=== PATIENT | male | born 1965 | race Caucasian/White ===

== ENCOUNTER 2016-10-02 10:03 | Inpatient (IN) | payer BC ==
[~2016-10-02] VITALS: Ht 182.8 cm; Wt 154.7 kg
--- NOTE | ~2016-10-02 | O ---
[place], [place] OPERATIVE NOTE NAME: [facility] UNIT #: [id number] ROOM: 425 DOCTOR: BHAVIN RICH MD BIRTHDATE: [birth year] DOS: 10/10/2016 CARDIOVERSION INDICATIONS: Atrial fibrillation with rapid ventricular response, diastolic heart failure, tachymyopathy. DESCRIPTION OF PROCEDURE: The patient was brought to the operating suite in a fasting state. He was anesthetized and monitored by Anesthesia staff. When a satisfactory degree of anesthesia was obtained, a transesophageal transducer was inserted through his mouth to the level of his stomach without difficulty. Images were obtained in the standard fashion. The left atrium and its appendage were imaged in multiple planes. No thrombus was seen. Once it was clear that he did not have any clot in his left heart, the transesophageal transducer was removed. The patient was placed on his back. He was then shocked utilizing anterior posterior pads with a synchronized biphasic cardioversion device. He received a total of 2 shocks, the first was at 50 watt seconds and converted him from apparent atrial flutter to atrial fibrillation. The second was at 200 watt seconds and converted him from atrial fibrillation to sinus. He had stable vital signs throughout and tolerated the procedure well. IMPRESSION: 1. No cardiac source of emboli seen by transesophageal echocardiography. 2. Successful synchronized cardioversion. BHAVIN RICH MD CM:OPRECORD:OPERATIVE NOTE [id number] BHAVIN RICH MD 10/11/16 0120 interface
--- NOTE | ~2016-10-02 | PR ---
[place], [place] PROGRESS NOTE NAME: [facility] UNIT #: [id number] ROOM: 425 DOCTOR: BHAVIN RICH MD BIRTHDATE: [birth year] DOS: 10/07/2016 CARDIOLOGY PROGRESS REPORT SUBJECTIVE: The patient was seen at his bedside today, 10/07/2016 for followup of his newly-documented heart failure and atrial flutter. He is breathing well, but still has considerable peripheral edema. He is diuresing briskly, but is still receiving his diuretics intravenously. He was noted to have frequent episodes of tachycardia today with heart rates in the 140s frequently. PHYSICAL EXAMINATION: VITAL SIGNS: On examination, his pulse is 120 and regular, blood pressure is 98/60, he is afebrile and he weighs 159.2 kilograms with a body mass index of 47.6. NECK: Supple. He has no jugular distention. Carotids are full. I heard no bruits. LUNGS: Respirations were unlabored. His chest was clear. He had decreased breath sounds at the bases but no wheezes, rales or dullness. CARDIOVASCULAR: His heart had a regular rapid rhythm today. Heart tones were distant. He was obese with a soft abdomen. EXTREMITIES: Showed 2+ pitting edema to the mid calf. LABORATORY EVALUATION: Sodium is 137, potassium 3.9, BUN 17 and creatinine 1.01. IMPRESSION: 1. Acute congestive heart failure, most likely due to atrial fibrillation with tachycardia-induced myopathy. 2. Morbid obesity with body mass index greater than 50 on admission. 3. Obstructive sleep apnea. 4. Elevated troponin levels. PLAN: His blood pressure today is somewhat marginal and; therefore, I decreased his angiotensin receptor shorty, but I did add diltiazem to his regimen to try to improve rate control. We will continue him with intravenous diuretics, anticoagulation and guideline-directed medical therapy as much as possible. I would like to bring him as close to euvolemia as possible before I switch him to oral agents or consider a cardioversion. This is best done in the hospital where we can adjust the dosages on a daily basis and follow laboratory studies closely. I thank the hospitalist physicians for asking our advice regarding the patient's care. [place], [place] PROGRESS NOTE NAME: [facility] UNIT #: [id number] ROOM: [facility] DOCTOR: BHAVIN RICH MD BIRTHDATE: [birth year] BHAVIN RICH MD CM:PNTRANS [id number] BHAVIN RICH MD 10/08/16 0632 interface
--- NOTE | ~2016-10-02 | PR ---
[place], [place] PROGRESS NOTE [id number] UNIT #: [id number] ROOM: 425 DOCTOR: BHAVIN RICH MD BIRTHDATE: [birth year] DOS: 10/11/2016 CARDIOLOGY PROGRESS NOTE SUBJECTIVE: The patient was seen at his bedside today 10/11/2016 for followup of his atrial fibrillation with tachycardia-induced cardiomyopathy. Yesterday, he did undergo a RJ-guided cardioversion, which he tolerated well. He tells me that he does feel like he is breathing better today. He denies any chest pain or palpitations. His peripheral edema seems to be improving. This is interesting to note that his ejection fraction on admission was about 45%. With heart rate control, his ejection fraction during the RJ done yesterday looked normal. He did have a pharmacologic stress test earlier in this hospitalization, which showed normal myocardial perfusion. PHYSICAL EXAMINATION: VITAL SIGNS: Today, his pulse is 74 and regular, blood pressure is 127/64. He is afebrile. NECK: Supple. He has no jugular distention. Carotids are full without bruits. He has no neck or supraclavicular masses. LUNGS: Respirations are unlabored. CHEST: His chest is clear to auscultation and percussion. He has no presacral edema or chest wall tenderness. HEART: Has a regular rhythm. He has a fourth heart sound, but no third heart sound or murmur. The PMI is not displaced. He has no precordial heave, lift or thrill. ABDOMEN: Soft and normally active without masses, organomegaly or bruits. EXTREMITIES: Showed 1+ edema. Peripheral pulses are easily palpated bilaterally. IMPRESSION: 1. Newly documented atrial fibrillation. 2. Tachycardia-induced cardiomyopathy. 3. Morbid obesity with body mass index greater than 50. 4. Obstructive sleep apnea. 5. Elevated troponin levels on admission, most likely due to tachycardia. 6. Pharmacologic myocardial perfusion study on 10/04/2016, ejection fraction 52% and no perfusion defects, low risk study. 7. Transesophageal echocardiography-guided cardioversion on 10/10/2016 showed no cardiac source of emboli. The patient converted to sinus rhythm after two shocks (50 watt seconds and 200 watt seconds). PLAN: The patient will be going home on his current medical regimen, which includes torsemide 60 mg daily, losartan 50 mg daily, digoxin 250 mcg daily, metoprolol succinate 100 mg b.i.d., apixaban 5 mg b.i.d., atorvastatin 20 mg daily, vitamin D 4000 units daily, spironolactone 25 mg daily. We will arrange to see him back in the office in about 2 weeks. I thank the hospitalist group for asking our advice regarding his care. [place], [place] PROGRESS NOTE NAME: [facility] UNIT #: [id number] ROOM: 425 DOCTOR: BHAVIN RICH MD BIRTHDATE: [birth year] BHAVIN RICH MD CM:PNTRANS [phone] BHAVIN RICH MD 10/11/161719 interface
--- NOTE | ~2016-10-02 | WRIGHTHP ---
[place], [place] PATIENT HISTORY AND PHYSICAL EXAM NAME[facility] [id number] UNIT #: [id number] ROOM: [facility] DOCTOR: HENRY GIRARD DO BIRTHDATE: [birth year] DOS: 10/02/2016 PRIMARY CARE PHYSICIAN: Dr. Nguyen Vang in the Family Medicine Residents. The patient was seen and evaluated with the resident on 10/02/2016. Please see the resident's note for further details. ASSESSMENT: 1. Acute systolic heart failure. 2. Newly recognized atrial flutter and currently with a rapid ventricular response. 3. Mildly elevated troponin. 4. History of cardiomyopathy diagnosed in April of 2014, echocardiogram at that time measured an ejection fraction of 40%. 5. Hypertension. 6. Hyperlipidemia. 7. Obstructive sleep apnea. 8. Obesity. 9. Tobacco abuse in the form of chewing tobacco. 10. False positive cardiac stress test in April of 2014. At that time, the patient was transferred to another facility for a cardiac catheterization, which showed no significant blockages. This is according to the patient. I do not have the records to verify this. 11. History of liver biopsy in April of 2014. PLAN: Continue Cardizem drip for rate control. Heparin drip has also been started. Cardiology has been consulted and an echocardiogram has been ordered. Continue IV diuresis with Lasix. We will continue to follow the cardiac enzymes and monitor the patient in ICU overnight. HENRY GIRARD DO CM:HISPHYS:PATIENT HISTORY AND PHYSICAL EXAMINATION 1613 [id number] HENRY GIRARD DO 10/02/16 1638 interface
--- NOTE | ~2016-10-02 | PR ---
[place], [place] PROGRESS NOTE NAME: [id number] UNIT #: [id number] ROOM: 425 DOCTOR: BHAVIN RICH MD BIRTHDATE: [birth year] DOS: 10/09/2016 SUBJECTIVE: The patient was seen at his bedside today, 10/09/2016, for followup of his recently documented atrial fibrillation and heart failure. He continues to diurese well, but remains in atrial fibrillation. His heart rate is typically controlled, but occasionally he still does get pulses in the 120 range. He denies any chest pain or palpitations. He denies lightheadedness or syncope. PHYSICAL EXAMINATION: VITAL SIGNS: Today, his pulse is 66 and irregularly irregular, blood pressure is 106/56. He is afebrile. NECK: Supple. He has no jugular distention or hepatojugular reflux. Carotids are full. LUNGS: Respirations are unlabored. His chest is clear to auscultation and percussion. He has no presacral edema. HEART: Has an irregularly irregular rhythm without murmurs or gallops. The PMI was not displaced. ABDOMEN: Obese, but otherwise benign, without masses, organomegaly or bruits. EXTREMITIES: Showed 1+ edema bilaterally. LABORATORY DATA: Hemoglobin is 15.9, white count 10,500. Sodium 133, potassium 4.4, BUN 24, creatinine 1.14. Digoxin level yesterday was 0.5. The patient has remained in atrial fibrillation despite good control of his heart rate, we will therefore plan on an elective cardioversion within the next 24 hours. Since he has not been anticoagulated for a full 3 weeks yet, we will do a RJ guided cardioversion. After that, he may be discharged to home within the next 24 hours. I thank the hospitalist physicians for asking our advice regarding his care. BHAVIN RICH MD CM:PNTRANS [phone] BHAVIN RICH MD 10/09/162300 interface
--- NOTE | ~2016-10-02 | PR ---
[place], [place] PROGRESS NOTE NAME: [facility] UNIT #: [id number] ROOM: 425 DOCTOR: BHAVIN RICH MD BIRTHDATE: [birth year] DOS: 10/08/2016 CARDIOLOGY PROGRESS NOTE SUBJECTIVE: The patient was seen at his bedside today 10/08/2016 for followup of his heart failure and atrial fibrillation. He tells me he feels considerably better and continues to diurese well. His urine output was negative 4 L for the last 48 hours (net). His ankles are much less swollen, and his legs no longer feel hard. He is walking without difficulty and denies lightheadedness. Since I added diltiazem to his regimen, his heart rate has slowed nicely, and he is currently running in the 60-70 rate. PHYSICAL EXAMINATION: VITAL SIGNS: Today, his pulse is 65 and irregularly irregular, blood pressure is 95/59. He is afebrile. NECK: Supple. I saw no jugular distention. Carotids are full. LUNGS: Respirations were unlabored. His chest was clear. HEART: Had an irregularly irregular rhythm. He had no murmurs or gallops. The PMI was not displaced. ABDOMEN: Soft and normoactive. EXTREMITIES: Showed 1+ edema bilaterally. It is slightly worse on the left than on the right. He does seem to be doing much better. I will switch him from IV to oral diuretics starting tomorrow. If all goes well and electrolytes are satisfactory, we will probably attempt a RJ-guided cardioversion the following day and then see if we can get him out of the hospital after that. PROBLEM LIST: 1. Acute congestive heart failure, most likely due to atrial fibrillation with tachycardia-induced cardiomyopathy. 2. Morbid obesity with body mass index greater than 50 on admission. 3. Obstructive sleep apnea. 4. Elevated troponin levels. [place], [place] PROGRESS NOTE NAME: [facility] UNIT #: [id number] ROOM: 425 DOCTOR: BHAVIN RICH MD BIRTHDATE: [birth year] BHAVIN RICH MD CM:PNTRANS [phone] BHAVIN RICH MD 10/09/16 0253 interface
--- NOTE | ~2016-10-02 | PR ---
[place], [place] PROGRESS NOTE [id number] UNIT #: [id number] ROOM: 425 DOCTOR: BHAVIN RICH MD BIRTHDATE: [birth year] DOS: 10/06/2016 SUBJECTIVE: The patient was seen at his bedside today 10/06/2016 for followup of his newly documented heart failure and atrial flutter. He states that he feels considerably better than on admission. He continues to diurese briskly. His weight is down from 182 kilograms to 158 kilograms and he still has a negative fluid balance on a daily basis. PHYSICAL EXAMINATION: VITAL SIGNS: Today, his pulse is 83 and fairly regular. Blood pressure is 116/62. He is afebrile. NECK: Supple. He has no obvious jugular distention, although he does have a very large neck. Carotids are full. LUNGS: Respirations are unlabored. He has decreased breath sounds at the bases. HEART: Has a fairly regular rhythm. He had no murmurs or gallops. The PMI could not be felt. ABDOMEN: Morbidly obese. EXTREMITIES: Showed 3+ edema to the knees bilaterally. LABORATORY DATA: Hemoglobin is 13.7, white count 6000. BUN 14, creatinine 0.99, sodium 136, potassium 3.9. The patient's echocardiogram on 10/02/2016, showed a technically difficult study with ejection fraction 40%, moderate concentric left ventricular hypertrophy, mildly dilated right ventricle, trace mitral insufficiency. The nuclear perfusion study showed an ejection fraction around 52% with normal perfusion. IMPRESSION: 1. Acute congestive heart failure, most likely due to atrial fibrillation with tachycardia-induced myopathy. 2. Morbid obesity with body mass index greater than 50 on admission. 3. Obstructive sleep apnea. 4. Elevated troponin. PLAN: We will continue to treat him with rate control, anticoagulation, and guideline-directed medical therapy. Since he still has considerable peripheral edema, I would like to continue to diurese him with intravenous diuretics for the time being. I would like to bring him as close to euvolemia as possible before we switch him to oral agents. This is best done in the hospital, so we can adjust dosages on daily basis. We also need to watch his renal functions closely. I thank the hospitalist physicians for asking our advice regarding his care. [place], [place] PROGRESS NOTE NAME: [facility] UNIT #: [id number] ROOM: 425 DOCTOR: BHAVIN RICH MD BIRTHDATE: [birth year] BHAVIN RICH MD CM:PNTRANS [id number] BHAVIN RICH MD 10/07/16 1254 interface
--- NOTE | ~2016-10-02 | ST ---
[place], [place] EXERCISE STRESS TEST REPORT NAME: [facility] UNIT #: [id number] ROOM: [facility] DOCTOR: BOB BLANCO MD BIRTHDATE: [birth year] DOS: 10/04/2016 LEXISCAN STRESS TEST REFERRING PHYSICIAN: Dr. Sampson. INDICATION: Elevated troponin, CHF. The patient underwent standard protocol Lexiscan stress EKG. The patient's baseline EKG showed atrial fibrillation with controlled ventricular response. The patient with rapid ventricular response with heart rate 102. The patient's baseline heart rate 102 with a blood pressure 160/108. The patient's peak heart rate was 106 with blood pressure 160/112. The patient had some shortness of breath and chest heaviness. The patient had no ST changes. The patient had atrial fibrillation as a baseline anchor to arrhythmias. SUMMARY OF FINDINGS: Unremarkable Lexiscan stress EKG. Please see separate ____ for perfusion scan results. BOB BLANCO MD CM:STRESS:EXERCISE STRESS TEST REPORT [id number] BOB BLANCO MD
[~2016-10-02 10:03] MED LIST: ALDACTONE25 MG PO; CEPHALEXIN500 MG PO; COREG12.5 MG PO; FUROSEMIDE40 MG PO; ZESTRIL,PRINIVI10 MG PO; ZESTRIL40 MG PO
[2016-10-02 10:49] LABS: BASO # 0.1 10*3/uL (0.0-0.1); EOS # 0.2 10*3/uL (0.0-0.4); EOS % 3.5 % (1.0-4.0); HEMATOCRIT 43.7 % (42.0-52.0); LYMPH # 0.8 10*3/uL (1.3-4.4); LYMPH % 13.3 % (27.0-41.0); MEAN CORPUSCULAR HGB 29.5 pg (27.0-31.0); MEAN PLATELET VOLUME 11.6 fl (9.6-12.3); MONO # 0.9 10*3/uL (0.1-1.0); MONO % 15.1 % (3.0-9.0); NEUT % 66.8 % (47.0-73.0); PLATELET COUNT AUTOMATED 161 10*3/uL (130-400); RED BLOOD COUNT 4.75 10*6/uL (4.50-5.90); RED CELL DISTRI WIDTH 14.7 % (0-14.5)
[2016-10-02 10:56] LABS: INTERNATIONAL NORM RATIO 1.4 (2.0-3.5); PROTHROMBIN TIME 15.5 SECONDS (9.0-12.4)
[2016-10-02 11:15] LABS: ALBUMIN 2.7 gm/dl (3.1-4.5); ALKALINE PHOSPHATASE 98 U/L (45-117); BUN 19 mg/dl (7-24); CARBON DIOXIDE 27 mmol/L (21-32); CHLORIDE 105 mmol/L (98-107); EST GLOM FILT AFRICAN AMERICAN > 60 ml/min; GLUCOSE 100 mg/dL (65-99); MAGNESIUM 1.8 mg/dL (1.5-2.1); POTASSIUM 4.1 mmol/L (3.5-5.1); SGOT/AST 51 IU/L (3-35); SGPT/ALT 40 U/L (12-78); SODIUM 142 mmol/L (136-145); TOTAL PROTEIN 6.5 gm/dL (6.4-8.2)
[2016-10-02 11:17] LABS: TROPONIN I 0.244 ng/ml (<0.045)
[2016-10-02 18:28] LABS: CKMB 1.6 ng/ml (0.5-3.6)
[2016-10-02 18:33] LABS: TROPONIN I 0.228 ng/ml (<0.045)
[2016-10-03 00:58] LABS: TROPONIN I 0.223 ng/ml (<0.045)
[2016-10-03 05:32] LABS: CKMB 1.1 ng/ml (0.5-3.6)
[2016-10-03 05:35] LABS: TROPONIN I 0.213 ng/ml (<0.045)
[2016-10-03 05:47] LABS: ALBUMIN 2.6 gm/dl (3.1-4.5); ALKALINE PHOSPHATASE 99 U/L (45-117); BILIRUBIN, TOTAL 2.1 mg/dl (0.2-1.0); BUN 16 mg/dl (7-24); CARBON DIOXIDE 30 mmol/L (21-32); CHLORIDE 101 mmol/L (98-107); CHOLESTEROL 91 mg/dL (<200); EST GLOM FILT AFRICAN AMERICAN > 60 ml/min; FREE T4 1.18 ng/dl (0.76-1.46); GLUCOSE 86 mg/dL (65-99); HDL CHOLESTEROL 30 mg/dl (40-60); LDL CHOLESTEROL 49 mg/dL (9-159); MAGNESIUM 1.8 mg/dL (1.5-2.1); POTASSIUM 3.7 mmol/L (3.5-5.1); SGOT/AST 43 IU/L (3-35); SGPT/ALT 37 U/L (12-78); SODIUM 141 mmol/L (136-145); TOTAL PROTEIN 6.5 gm/dL (6.4-8.2); TRIGLYCERIDES 61 mg/dl (<150); VLDL CHOLESTEROL 12 mg/dL (6-40)
[2016-10-03 06:07] LABS: BASO # 0.1 10*3/uL (0.0-0.1); EOS # 0.3 10*3/uL (0.0-0.4); EOS % 5.7 % (1.0-4.0); HEMATOCRIT 43.1 % (42.0-52.0); HEMOGLOBIN 13.7 g/dl (14.0-18.0); LYMPH # 1.2 10*3/uL (1.3-4.4); LYMPH % 20.3 % (27.0-41.0); MEAN CELL VOLUME 92.3 fl (80.0-94.0); MEAN CORPUSCULAR HGB 29.3 pg (27.0-31.0); MEAN CORPUSCULAR HGB CONC 31.8 g/dl (33.0-37.0); MEAN PLATELET VOLUME 12.1 fl (9.6-12.3); MONO # 1.1 10*3/uL (0.1-1.0); MONO % 18.6 % (3.0-9.0); NEUT # 3.2 10*3/uL (2.3-7.9); NEUT % 53.9 % (47.0-73.0); PLATELET COUNT AUTOMATED 170 10*3/uL (130-400); RED BLOOD COUNT 4.67 10*6/uL (4.50-5.90); RED CELL DISTRI WIDTH 14.8 % (0-14.5)
[2016-10-03 06:26] LABS: HEMOGLOBIN A1c 5.1 % (4.8-5.6)
[2016-10-03 06:30] LABS: INTERNATIONAL NORM RATIO 1.4 (2.0-3.5); PROTHROMBIN TIME 15.5 SECONDS (9.0-12.4)
[2016-10-03 07:43] LABS: VITAMIN D, 25-HYDROXY 7.7 ng/mL (30-100)
[2016-10-03 07:44] LABS: FOLIC ACID 7.17 ng/mL (>5.38)
[2016-10-04 15:02] LABS: BUN 13 mg/dl (7-24); CARBON DIOXIDE 34 mmol/L (21-32); CHLORIDE 98 mmol/L (98-107); EST GLOM FILT AFRICAN AMERICAN > 60 ml/min; GLUCOSE 106 mg/dL (65-99); POTASSIUM 3.7 mmol/L (3.5-5.1); SODIUM 141 mmol/L (136-145)
[2016-10-04] MEDS ORDERED: LANOXIN0.125 MG PO (15:53)
[2016-10-04] MEDS ORDERED: TOPROL XL50 M1 PO (15:53)
[2016-10-04] MEDS ORDERED: ALDACTONE25 MG PO (15:53)
[2016-10-04] MEDS ORDERED: LIPITOR20 MG PO (15:53)
[2016-10-04] MEDS ORDERED: LOSARTAN POTASS25 M1 PO (15:53)
[2016-10-04] MEDS ORDERED: D-1000 185 MG-11 TAB PO (15:53)
[2016-10-04] MEDS ORDERED: LASIX40 MG PO (15:57)
[2016-10-05 05:37] LABS: BUN 14 mg/dl (7-24); CARBON DIOXIDE 31 mmol/L (21-32); CHLORIDE 96 mmol/L (98-107); EST GLOM FILT AFRICAN AMERICAN > 60 ml/min; GLUCOSE 84 mg/dL (65-99); POTASSIUM 3.5 mmol/L (3.5-5.1); SODIUM 140 mmol/L (136-145)
[2016-10-05 10:17] LABS: BUN 13 mg/dl (7-24); CARBON DIOXIDE 31 mmol/L (21-32); CHLORIDE 96 mmol/L (98-107); EST GLOM FILT AFRICAN AMERICAN > 60 ml/min; GLUCOSE 126 mg/dL (65-99); POTASSIUM 3.4 mmol/L (3.5-5.1); SODIUM 138 mmol/L (136-145)
[2016-10-06 07:43] LABS: BUN 14 mg/dl (7-24); CARBON DIOXIDE 28 mmol/L (21-32); CHLORIDE 98 mmol/L (98-107); EST GLOM FILT AFRICAN AMERICAN > 60 ml/min; GLUCOSE 115 mg/dL (65-99); POTASSIUM 3.8 mmol/L (3.5-5.1); SODIUM 137 mmol/L (136-145)
[2016-10-06 10:01] LABS: BUN 14 mg/dl (7-24); CARBON DIOXIDE 29 mmol/L (21-32); CHLORIDE 97 mmol/L (98-107); EST GLOM FILT AFRICAN AMERICAN > 60 ml/min; GLUCOSE 129 mg/dL (65-99); POTASSIUM 3.8 mmol/L (3.5-5.1); SODIUM 136 mmol/L (136-145)
[2016-10-07 10:11] LABS: BUN 17 mg/dl (7-24); CARBON DIOXIDE 30 mmol/L (21-32); CHLORIDE 99 mmol/L (98-107); EST GLOM FILT AFRICAN AMERICAN > 60 ml/min; GLUCOSE 122 mg/dL (65-99); POTASSIUM 3.9 mmol/L (3.5-5.1); SODIUM 137 mmol/L (136-145)
[2016-10-08 07:48] LABS: BUN 20 mg/dl (7-24); CARBON DIOXIDE 28 mmol/L (21-32); CHLORIDE 99 mmol/L (98-107); EST GLOM FILT AFRICAN AMERICAN > 60 ml/min; GLUCOSE 94 mg/dL (65-99); POTASSIUM 4.3 mmol/L (3.5-5.1); SODIUM 138 mmol/L (136-145)
[2016-10-09 06:18] LABS: HEMATOCRIT 48.2 % (42.0-52.0); HEMOGLOBIN 15.9 g/dl (14.0-18.0); MEAN CELL VOLUME 88.8 fl (80.0-94.0); MEAN CORPUSCULAR HGB 29.3 pg (27.0-31.0); MEAN PLATELET VOLUME 11.9 fl (9.6-12.3); PLATELET COUNT AUTOMATED 257 10*3/uL (130-400); RED BLOOD COUNT 5.43 10*6/uL (4.50-5.90); RED CELL DISTRI WIDTH 14.9 % (0-14.5); WHITE BLOOD COUNT 10.5 10*3/uL (4.8-10.8)
[2016-10-09 06:29] LABS: BUN 24 mg/dl (7-24); CARBON DIOXIDE 27 mmol/L (21-32); CHLORIDE 96 mmol/L (98-107); EST GLOM FILT AFRICAN AMERICAN > 60 ml/min; GLUCOSE 90 mg/dL (65-99); POTASSIUM 4.4 mmol/L (3.5-5.1); SODIUM 133 mmol/L (136-145)
[2016-10-09 06:49] LABS: BASOPHIL # 0.1 10*3/uL (0-0.1); BASOPHILS 1 % (0-1); EOSINOPHIL # 0.8 10*3/uL (0-0.4); EOSINOPHILS 8 % (1-4); LYMPHOCYTE # 2.6 10*3/uL (1.3-4.4); MONOCYTE # 1.8 10*3/uL (0.1-1.0); NEUTROPHIL # 5.1 10*3/uL (2.3-7.9); NEUTROPHILS 49 % (47-73); TOTAL CELLS COUNTED 100 #CELLS
[2016-10-09 06:50] LABS: PLATELET SUFFICIENCY NORMAL (NORMAL)
[2016-10-10 07:22] LABS: HEMATOCRIT 48.6 % (42.0-52.0); HEMOGLOBIN 15.7 g/dl (14.0-18.0); MEAN CORPUSCULAR HGB 29.1 pg (27.0-31.0); MEAN CORPUSCULAR HGB CONC 32.3 g/dl (33.0-37.0); MEAN PLATELET VOLUME 11.8 fl (9.6-12.3); PLATELET COUNT AUTOMATED 235 10*3/uL (130-400); RED CELL DISTRI WIDTH 14.6 % (0-14.5); WHITE BLOOD COUNT 8.2 10*3/uL (4.8-10.8)
[2016-10-10 07:43] LABS: BURR CELLS FEW; EOSINOPHIL # 0.8 10*3/uL (0-0.4); EOSINOPHILS 10 % (1-4); LYMPHOCYTE # 1.9 10*3/uL (1.3-4.4); MONOCYTE # 1.1 10*3/uL (0.1-1.0); NEUTROPHIL # 4.4 10*3/uL (2.3-7.9); NEUTROPHILS 54 % (47-73); TOTAL CELLS COUNTED 100 #CELLS
[2016-10-10 07:44] LABS: PLATELET SUFFICIENCY NORMAL (NORMAL)
[2016-10-10 07:49] LABS: ALBUMIN 2.7 gm/dl (3.1-4.5); ALKALINE PHOSPHATASE 107 U/L (45-117); BILIRUBIN, TOTAL 1.8 mg/dl (0.2-1.0); BUN 27 mg/dl (7-24); CARBON DIOXIDE 28 mmol/L (21-32); CHLORIDE 100 mmol/L (98-107); EST GLOM FILT AFRICAN AMERICAN > 60 ml/min; GLUCOSE 93 mg/dL (65-99); POTASSIUM 4.4 mmol/L (3.5-5.1); SGOT/AST 47 IU/L (3-35); SGPT/ALT 39 U/L (12-78); SODIUM 137 mmol/L (136-145); TOTAL PROTEIN 7.3 gm/dL (6.4-8.2)
[2016-10-11 07:04] LABS: BASO # 0.1 10*3/uL (0.0-0.1); BASO % 1.1 % (0.0-1.0); EOS # 0.4 10*3/uL (0.0-0.4); EOS % 6.1 % (1.0-4.0); HEMATOCRIT 48.8 % (42.0-52.0); HEMOGLOBIN 15.9 g/dl (14.0-18.0); IG # 0.1 10*3/uL (0.0-0.1); LYMPH # 1.4 10*3/uL (1.3-4.4); LYMPH % 18.8 % (27.0-41.0); MEAN CELL VOLUME 90.9 fl (80.0-94.0); MEAN CORPUSCULAR HGB 29.6 pg (27.0-31.0); MEAN CORPUSCULAR HGB CONC 32.6 g/dl (33.0-37.0); MEAN PLATELET VOLUME 11.4 fl (9.6-12.3); MONO # 1.4 10*3/uL (0.1-1.0); MONO % 19.4 % (3.0-9.0); NEUT # 3.9 10*3/uL (2.3-7.9); NEUT % 53.9 % (47.0-73.0); PLATELET COUNT AUTOMATED 251 10*3/uL (130-400); RED BLOOD COUNT 5.37 10*6/uL (4.50-5.90); RED CELL DISTRI WIDTH 14.6 % (0-14.5); WHITE BLOOD COUNT 7.3 10*3/uL (4.8-10.8)
[2016-10-11 07:40] LABS: CHLORIDE 97 mmol/L (98-107); POTASSIUM 5.3 mmol/L (3.5-5.1); SODIUM 134 mmol/L (136-145)
[2016-10-11 07:56] LABS: ALBUMIN 2.9 gm/dl (3.1-4.5); ALKALINE PHOSPHATASE 110 U/L (45-117); BILIRUBIN, TOTAL 2.4 mg/dl (0.2-1.0); BUN 29 mg/dl (7-24); CARBON DIOXIDE 26 mmol/L (21-32); EST GLOM FILT AFRICAN AMERICAN > 60 ml/min; GLUCOSE 90 mg/dL (65-99); SGOT/AST 100 IU/L (3-35); SGPT/ALT 52 U/L (12-78)
[2016-10-11] MEDS ORDERED: ELIQUIS5 M1 PO (11:53)
[2016-10-11] MEDS ORDERED: LANOXIN250 MCG PO (11:53)
[2016-10-11] MEDS ORDERED: TOPROL XL100 MG PO (11:53)
[2016-10-11] MEDS ORDERED: D-1000 185 MG-11 TAB PO (11:53)
[2016-10-11] MEDS ORDERED: LIPITOR20 MG PO (11:53)
[2016-10-11] MEDS ORDERED: LOSARTAN POTASS50 M1 PO (11:53)
== END 2016-10-11 14:22 | disposition home or self-care (01) | DRG 280 ==
LOC: ED 10:03 → 4E 11:47 → EDHOLD 11:47 → ICCU 12:34 → 4E 10-05 14:35
PROVIDERS: Hospitalist; Internal Medicine; Internal Medicine Cardiovascular Disease; Nurse Practitioner Family; Student in an Organized Health Care Education/Training Program
PROC: 4A02XM4 Measurement of Cardiac Total Activity, External Approach (ICD-10-PCS; principal; 2016-10-04)
PROC: 5A2204Z Restoration of Cardiac Rhythm, Single (ICD-10-PCS; 2016-10-10)
DX: I21.4 Non-ST elevation (NSTEMI) myocardial infarction (principal); E43 Unspecified severe protein-calorie malnutrition; I50.41 Acute combined systolic (congestive) and diastolic (congestive) heart failure; I42.9 Cardiomyopathy, unspecified; I48.92 Unspecified atrial flutter; I48.91 Unspecified atrial fibrillation; I11.0 Hypertensive heart disease with heart failure; E66.01 Morbid (severe) obesity due to excess calories; M10.9 Gout, unspecified; G47.33 Obstructive sleep apnea (adult) (pediatric); E55.9 Vitamin D deficiency, unspecified; E87.6 Hypokalemia; E78.5 Hyperlipidemia, unspecified; F17.200 Nicotine dependence, unspecified, uncomplicated; Z82.49 Family history of ischemic heart disease and other diseases of the circulatory system; Z68.43 Body mass index [BMI] 50.0-59.9, adult; Z79.899 Other long term (current) drug therapy

== ENCOUNTER → 2020-01-19 | Outpatient (CLI) | payer BC ==
[~2020-01-19] MED LIST changes: +CARVEDILOL25 MG PO; +D-1000 185 MG-11 TAB PO; +ELIQUIS5 M1 PO; +LANOXIN0.125 MG PO; +LANOXIN250 MCG PO; +LASIX40 MG PO; +LIPITOR20 MG PO; +LISINOPRIL40 MG PO; +LOSARTAN POTASS25 M1 PO; +LOSARTAN POTASS50 M1 PO; +TOPROL XL100 MG PO; +TOPROL XL50 M1 PO; +TORSEMIDE10 MG PO
== END | disposition home or self-care (01) ==
LOC: CARD 14:40
DX: I48.0 Paroxysmal atrial fibrillation (principal); I42.8 Other cardiomyopathies; R06.02 Shortness of breath

== ENCOUNTER 2020-02-03 10:15 | Emergency (ER) | payer BC ==
[~2020-02-03] VITALS: Ht 182.8 cm; Wt 191.9 kg
[2020-02-03] MEDS ORDERED: DOXYCYCLINE100 M3 PO (13:28)
[2020-02-03] MEDS ORDERED: NORCO 10-325 T1 EACH PO (13:31)
== END 2020-02-03 13:36 | disposition home or self-care (01) ==
LOC: ED 10:15
DX: N43.3 Hydrocele, unspecified (principal); R19.7 Diarrhea, unspecified; I50.9 Heart failure, unspecified; I11.0 Hypertensive heart disease with heart failure; M19.90 Unspecified osteoarthritis, unspecified site; Z79.899 Other long term (current) drug therapy

== ENCOUNTER → 2020-05-25 | Outpatient (CLI) | payer BC ==
[~2020-05-25] MED LIST changes: +DOXYCYCLINE100 M3 PO; +NORCO 10-325 T1 EACH PO
[2020-05-25 13:15] LABS: BASO # 0.1 10*3/uL (0.0-0.1); BASO % 0.9 % (0.0-1.0); EOS # 0.3 10*3/uL (0.0-0.4); EOS % 5.1 % (1.0-4.0); HEMATOCRIT 38.2 % (42.0-52.0); LYMPH # 0.9 10*3/uL (1.3-4.4); LYMPH % 15.2 % (27.0-41.0); MEAN CELL VOLUME 88.6 fl (80.0-94.0); MEAN CORPUSCULAR HGB 27.1 pg (27.0-31.0); MEAN CORPUSCULAR HGB CONC 30.6 g/dl (33.0-37.0); MEAN PLATELET VOLUME 11.3 fl (9.6-12.3); MONO # 0.9 10*3/uL (0.1-1.0); MONO % 15.7 % (3.0-9.0); NEUT # 3.6 10*3/uL (2.3-7.9); NEUT % 62.9 % (47.0-73.0); PLATELET COUNT AUTOMATED 266 10*3/uL (130-400); RED BLOOD COUNT 4.31 10*6/uL (4.50-5.90); RED CELL DISTRI WIDTH 14.7 % (0-14.5); WHITE BLOOD COUNT 5.7 10*3/uL (4.8-10.8)
[2020-05-25 13:50] LABS: ALBUMIN 2.8 gm/dl (3.1-4.5); ALKALINE PHOSPHATASE 131 U/L (45-117); BUN 10 mg/dl (7-24); CHLORIDE 111 mmol/L (98-107); CREATININE 0.87 mg/dL (0.70-1.30); SGOT/AST 30 IU/L (3-35); SGPT/ALT 21 U/L (12-78); SODIUM 140 mmol/L (136-145); T3 UPTAKE 37 % (31-39); THYROXINE (T4) TOTAL 11.5 ug/dl (4.5-12.1); TOTAL PROTEIN 7.1 gm/dL (6.4-8.2)
[2020-05-26 05:06] LABS: FOLLICLE STIMULATING HORMONE 24.3 mIU/mL (1.5-12.4); PROGESTERONE 0.2 ng/mL (0.0-0.5)
== END | disposition home or self-care (01) ==
LOC: US 05-13 15:00 → LAB 12:52
PROVIDERS: ATTEND Urology
DX: R53.82 Chronic fatigue, unspecified (principal); D40.0 Neoplasm of uncertain behavior of prostate; N50.819 Testicular pain, unspecified

== ENCOUNTER → 2020-10-12 | Outpatient (CLI) | payer BC | LOC: WOUNDCARE 01:30 | PROVIDERS: ATTEND Nurse Practitioner | DX: L97.812 Non-pressure chronic ulcer of other part of right lower leg with fat layer exposed (principal); L97.822 Non-pressure chronic ulcer of other part of left lower leg with fat layer exposed; I89.0 Lymphedema, not elsewhere classified; L03.116 Cellulitis of left lower limb; I50.9 Heart failure, unspecified; G47.33 Obstructive sleep apnea (adult) (pediatric); E78.5 Hyperlipidemia, unspecified; Z93.3 Colostomy status ==

== ENCOUNTER → 2020-10-20 | Outpatient (CLI) | payer BC | LOC: WOUNDCARE 04:01 | PROVIDERS: ATTEND Nurse Practitioner | DX: L97.812 Non-pressure chronic ulcer of other part of right lower leg with fat layer exposed (principal); L97.822 Non-pressure chronic ulcer of other part of left lower leg with fat layer exposed; I89.0 Lymphedema, not elsewhere classified; L03.116 Cellulitis of left lower limb; I50.9 Heart failure, unspecified; G47.33 Obstructive sleep apnea (adult) (pediatric); E78.5 Hyperlipidemia, unspecified; Z93.3 Colostomy status ==

== ENCOUNTER → 2020-10-28 | Outpatient (CLI) | payer BC | LOC: WOUNDCARE 10-27 02:11 | PROVIDERS: ATTEND Nurse Practitioner | DX: L97.812 Non-pressure chronic ulcer of other part of right lower leg with fat layer exposed (principal); L97.822 Non-pressure chronic ulcer of other part of left lower leg with fat layer exposed; I89.0 Lymphedema, not elsewhere classified; L03.116 Cellulitis of left lower limb; I50.9 Heart failure, unspecified; G47.33 Obstructive sleep apnea (adult) (pediatric); E78.5 Hyperlipidemia, unspecified; Z93.3 Colostomy status ==

== ENCOUNTER → 2020-10-28 | Outpatient (CLI) | payer BC | END | disposition home or self-care (01) | LOC: US 10-27 13:30 | PROVIDERS: ATTEND Nurse Practitioner Primary Care | DX: I70.202 Unspecified atherosclerosis of native arteries of extremities, left leg (principal); I89.0 Lymphedema, not elsewhere classified; M79.89 Other specified soft tissue disorders ==

== ENCOUNTER → 2020-11-09 | Outpatient (CLI) | payer BC | LOC: WOUNDCARE 00:46 | PROVIDERS: ATTEND Nurse Practitioner | DX: L97.812 Non-pressure chronic ulcer of other part of right lower leg with fat layer exposed (principal); L97.822 Non-pressure chronic ulcer of other part of left lower leg with fat layer exposed; I89.0 Lymphedema, not elsewhere classified; L03.116 Cellulitis of left lower limb; I50.9 Heart failure, unspecified; G47.33 Obstructive sleep apnea (adult) (pediatric); E78.5 Hyperlipidemia, unspecified; Z93.3 Colostomy status ==

== ENCOUNTER → 2020-11-21 | Outpatient (CLI) | payer BC | LOC: WOUNDCARE 01:13 | PROVIDERS: ATTEND Nurse Practitioner | DX: I89.0 Lymphedema, not elsewhere classified (principal); L97.812 Non-pressure chronic ulcer of other part of right lower leg with fat layer exposed; L97.822 Non-pressure chronic ulcer of other part of left lower leg with fat layer exposed; L03.116 Cellulitis of left lower limb; I50.9 Heart failure, unspecified; G47.33 Obstructive sleep apnea (adult) (pediatric); E78.5 Hyperlipidemia, unspecified ==

== ENCOUNTER → 2020-12-08 | Outpatient (CLI) | payer BC | LOC: WOUNDCARE 12-05 01:58 | PROVIDERS: ATTEND Nurse Practitioner | DX: L97.812 Non-pressure chronic ulcer of other part of right lower leg with fat layer exposed (principal); L97.822 Non-pressure chronic ulcer of other part of left lower leg with fat layer exposed; I89.0 Lymphedema, not elsewhere classified; L03.116 Cellulitis of left lower limb; I50.9 Heart failure, unspecified; E78.5 Hyperlipidemia, unspecified; G47.33 Obstructive sleep apnea (adult) (pediatric) ==

== ENCOUNTER → 2020-12-19 | Outpatient (CLI) | payer BC | LOC: WOUNDCARE 00:56 | PROVIDERS: ATTEND Nurse Practitioner | DX: I89.0 Lymphedema, not elsewhere classified (principal); L97.812 Non-pressure chronic ulcer of other part of right lower leg with fat layer exposed; L97.822 Non-pressure chronic ulcer of other part of left lower leg with fat layer exposed; L03.116 Cellulitis of left lower limb; I50.9 Heart failure, unspecified; E78.5 Hyperlipidemia, unspecified; G47.33 Obstructive sleep apnea (adult) (pediatric) ==

== ENCOUNTER → 2021-01-04 | Outpatient (CLI) | payer BC | LOC: WOUNDCARE 14:52 | PROVIDERS: ATTEND Nurse Practitioner | DX: I89.0 Lymphedema, not elsewhere classified (principal); L97.812 Non-pressure chronic ulcer of other part of right lower leg with fat layer exposed; L97.822 Non-pressure chronic ulcer of other part of left lower leg with fat layer exposed; L03.116 Cellulitis of left lower limb; I50.9 Heart failure, unspecified; E78.5 Hyperlipidemia, unspecified; G47.33 Obstructive sleep apnea (adult) (pediatric) ==

== ENCOUNTER → 2021-01-26 | Outpatient (CLI) | payer BC | LOC: WOUNDCARE 02:06 | PROVIDERS: ATTEND Nurse Practitioner | DX: L97.812 Non-pressure chronic ulcer of other part of right lower leg with fat layer exposed (principal); L97.822 Non-pressure chronic ulcer of other part of left lower leg with fat layer exposed; I89.0 Lymphedema, not elsewhere classified; L03.116 Cellulitis of left lower limb; I50.9 Heart failure, unspecified; E78.5 Hyperlipidemia, unspecified; G47.33 Obstructive sleep apnea (adult) (pediatric) ==

== ENCOUNTER 2021-03-02 15:37 | Inpatient (IN) | payer OTHER ==
[~2021-03-02] VITALS: Ht 180.3 cm; Wt 163.5 kg
[2021-03-02 15:48] VITALS: BP 125/73
[2021-03-02 16:59] LABS: HEMATOCRIT 30.2 % (42.0-52.0); MEAN CELL VOLUME 69.1 fl (80.0-94.0); MEAN CORPUSCULAR HGB 19.2 pg (27.0-31.0); MEAN CORPUSCULAR HGB CONC 27.8 g/dl (33.0-37.0); MEAN PLATELET VOLUME 9.8 fl (9.6-12.3); PLATELET COUNT AUTOMATED 240 10*3/uL (130-400); RED BLOOD COUNT 4.37 10*6/uL (4.50-5.90); RED CELL DISTRI WIDTH 22.2 % (0-14.5); WHITE BLOOD COUNT 9.5 10*3/uL (4.8-10.8)
[2021-03-02 17:15] LABS: ALBUMIN 2.1 gm/dl (3.1-4.5); ALKALINE PHOSPHATASE 135 U/L (45-117); BUN 15 mg/dl (7-24); CHLORIDE 99 mmol/L (98-107); CREATININE 0.95 mg/dL (0.70-1.30); POTASSIUM 2.6 mmol/L (3.5-5.1); SGOT/AST 33 IU/L (3-35); SGPT/ALT 22 U/L (12-78); SODIUM 137 mmol/L (136-145); TOTAL PROTEIN 7.7 gm/dL (6.4-8.2)
[2021-03-02 17:16] LABS: TROPONIN I 0.015 ng/ml (<0.045)
[2021-03-02 17:29] LABS: BASOPHILS 1 % (0-1); OVALOCYTES FEW; PLATELET SUFFICIENCY NORMAL (NORMAL); TOTAL CELLS COUNTED 100 #CELLS
[2021-03-02 20:14] VITALS: BP 133/65
[2021-03-02 20:40] VITALS: BP 133/63
[2021-03-02] MEDS ORDERED: FLOMAX0.4 MG PO (20:57)
[2021-03-02] MEDS ORDERED: PROPRANOLOL HCL10 MG PO (20:58)
[2021-03-02] MEDS ORDERED: Zaroxolyn,Diul2.5 MG PO (20:59)
[2021-03-02] MEDS ORDERED: LASIX40 MG PO (21:00)
[2021-03-02] MEDS ORDERED: FINASTERIDE5 M1 PO (21:00)
[2021-03-02] MEDS ORDERED: CARDIZEM CD300 MG PO (21:02)
[2021-03-02] MEDS ORDERED: AMITIZA8 MCG PO (21:03)
[2021-03-02] MEDS ORDERED: KLOR-CON M2020 ME1 PO (21:04)
[2021-03-03] VITALS: BP 138/76
[2021-03-03 06:18] LABS: HEMATOCRIT 27.4 % (42.0-52.0); MEAN CELL VOLUME 71.7 fl (80.0-94.0); MEAN CORPUSCULAR HGB 19.4 pg (27.0-31.0); MEAN PLATELET VOLUME 10.1 fl (9.6-12.3); PLATELET COUNT AUTOMATED 185 10*3/uL (130-400); RED BLOOD COUNT 3.82 10*6/uL (4.50-5.90); RED CELL DISTRI WIDTH 22.2 % (0-14.5); WHITE BLOOD COUNT 8.4 10*3/uL (4.8-10.8)
[2021-03-03 06:42] LABS: ALBUMIN 1.9 gm/dl (3.1-4.5); ALKALINE PHOSPHATASE 110 U/L (45-117); BUN 15 mg/dl (7-24); CHLORIDE 102 mmol/L (98-107); CHOLESTEROL 106 mg/dL (<200); CREATININE 0.79 mg/dL (0.70-1.30); LDL CHOLESTEROL 61 mg/dL (9-159); POTASSIUM 2.6 mmol/L (3.5-5.1); SGOT/AST 28 IU/L (3-35); SGPT/ALT 17 U/L (12-78); SODIUM 138 mmol/L (136-145); TOTAL PROTEIN 6.5 gm/dL (6.4-8.2); TRIGLYCERIDES 57 mg/dl (<150)
[2021-03-03 07:10] LABS: PLATELET SUFFICIENCY NORMAL (NORMAL); POLYCHROMASIA SLIGHT; SCHISTOCYTES FEW; TOTAL CELLS COUNTED 100 #CELLS
[2021-03-03 08:00] VITALS: BP 129/49
[2021-03-03 12:00] VITALS: BP 101/59
[2021-03-03 13:56] LABS: BUN 15 mg/dl (7-24); CHLORIDE 101 mmol/L (98-107); POTASSIUM 2.8 mmol/L (3.5-5.1); SODIUM 136 mmol/L (136-145)
[2021-03-03 16:00] VITALS: BP 110/55
[2021-03-03 20:00] VITALS: BP 111/44; BP 114/41
[2021-03-04] VITALS (7 sets, daily range): BP systolic 95–122; BP diastolic 36–59
[2021-03-04 06:02] LABS: HEMATOCRIT 26.7 % (42.0-52.0); MEAN CELL VOLUME 70.8 fl (80.0-94.0); MEAN CORPUSCULAR HGB 19.6 pg (27.0-31.0); MEAN CORPUSCULAR HGB CONC 27.7 g/dl (33.0-37.0); MEAN PLATELET VOLUME 10.8 fl (9.6-12.3); PLATELET COUNT AUTOMATED 203 10*3/uL (130-400); RED BLOOD COUNT 3.77 10*6/uL (4.50-5.90); RED CELL DISTRI WIDTH 22.5 % (0-14.5); WHITE BLOOD COUNT 9.6 10*3/uL (4.8-10.8)
[2021-03-04 06:13] LABS: ALBUMIN 1.8 gm/dl (3.1-4.5); ALKALINE PHOSPHATASE 111 U/L (45-117); BUN 16 mg/dl (7-24); CHLORIDE 102 mmol/L (98-107); CREATININE 0.77 mg/dL (0.70-1.30); POTASSIUM 2.8 mmol/L (3.5-5.1); SGOT/AST 29 IU/L (3-35); SGPT/ALT 18 U/L (12-78); SODIUM 136 mmol/L (136-145); TOTAL PROTEIN 6.6 gm/dL (6.4-8.2)
[2021-03-04 07:02] LABS: BASOPHILS 1 % (0-1); MICROCYTOSIS SLIGHT; PLATELET SUFFICIENCY NORMAL (NORMAL); POLYCHROMASIA SLIGHT; TOTAL CELLS COUNTED 100 #CELLS
[2021-03-05] VITALS: BP 117/60
[2021-03-05 06:13] LABS: ALBUMIN 1.9 gm/dl (3.1-4.5); ALKALINE PHOSPHATASE 115 U/L (45-117); BASO % 0.1 % (0.0-1.0); BUN 16 mg/dl (7-24); CHLORIDE 101 mmol/L (98-107); CREATININE 0.67 mg/dL (0.70-1.30); LYMPH # 0.7 10*3/uL (1.3-4.4); LYMPH % 5.2 % (27.0-41.0); MEAN CELL VOLUME 71.8 fl (80.0-94.0); MEAN CORPUSCULAR HGB 19.4 pg (27.0-31.0); MEAN PLATELET VOLUME 10.7 fl (9.6-12.3); MONO # 1.2 10*3/uL (0.1-1.0); MONO % 8.5 % (3.0-9.0); NEUT % 85.6 % (47.0-73.0); PLATELET COUNT AUTOMATED 219 10*3/uL (130-400); POTASSIUM 3.6 mmol/L (3.5-5.1); RED BLOOD COUNT 3.76 10*6/uL (4.50-5.90); RED CELL DISTRI WIDTH 22.4 % (0-14.5); SGOT/AST 28 IU/L (3-35); SGPT/ALT 18 U/L (12-78); SODIUM 134 mmol/L (136-145); TOTAL PROTEIN 7.1 gm/dL (6.4-8.2); WHITE BLOOD COUNT 14.1 10*3/uL (4.8-10.8)
[2021-03-05 08:00] VITALS: BP 119/60
[2021-03-05 12:00] VITALS: BP 114/48
[2021-03-05 16:00] VITALS: BP 136/56
[2021-03-05 20:00] VITALS: BP 109/52
[2021-03-06] VITALS: BP 121/52
[2021-03-06 05:29] LABS: ALBUMIN 1.9 gm/dl (3.1-4.5); ALKALINE PHOSPHATASE 108 U/L (45-117); BUN 19 mg/dl (7-24); CHLORIDE 103 mmol/L (98-107); CREATININE 0.69 mg/dL (0.70-1.30); POTASSIUM 3.4 mmol/L (3.5-5.1); SGOT/AST 30 IU/L (3-35); SGPT/ALT 19 U/L (12-78); SODIUM 136 mmol/L (136-145); TOTAL PROTEIN 6.7 gm/dL (6.4-8.2)
[2021-03-06 06:15] LABS: HEMATOCRIT 25.8 % (42.0-52.0); MEAN CELL VOLUME 72.1 fl (80.0-94.0); MEAN CORPUSCULAR HGB 19.6 pg (27.0-31.0); MEAN CORPUSCULAR HGB CONC 27.1 g/dl (33.0-37.0); MEAN PLATELET VOLUME 11.1 fl (9.6-12.3); PLATELET COUNT AUTOMATED 206 10*3/uL (130-400); RED BLOOD COUNT 3.58 10*6/uL (4.50-5.90); RED CELL DISTRI WIDTH 22.5 % (0-14.5); WHITE BLOOD COUNT 10.2 10*3/uL (4.8-10.8)
[2021-03-06 07:23] LABS: MICROCYTOSIS SLIGHT; PLATELET SUFFICIENCY NORMAL (NORMAL); POLYCHROMASIA SLIGHT; ROULEAUX MODERATE; TOTAL CELLS COUNTED 100 #CELLS
[2021-03-06 08:00] VITALS: BP 100/72
[2021-03-06 12:00] VITALS: BP 100/50
[2021-03-06 16:00] VITALS: BP 117/43
[2021-03-06 20:00] VITALS: BP 121/49
[2021-03-07] VITALS: BP 108/41
[2021-03-07 06:11] LABS: HEMATOCRIT 25.5 % (42.0-52.0); MEAN CELL VOLUME 71.4 fl (80.0-94.0); MEAN CORPUSCULAR HGB 19.6 pg (27.0-31.0); MEAN CORPUSCULAR HGB CONC 27.5 g/dl (33.0-37.0); MEAN PLATELET VOLUME 11.1 fl (9.6-12.3); PLATELET COUNT AUTOMATED 211 10*3/uL (130-400); RED BLOOD COUNT 3.57 10*6/uL (4.50-5.90); RED CELL DISTRI WIDTH 22.5 % (0-14.5); WHITE BLOOD COUNT 9.3 10*3/uL (4.8-10.8)
[2021-03-07 06:16] LABS: BUN 20 mg/dl (7-24); CHLORIDE 103 mmol/L (98-107); CREATININE 0.68 mg/dL (0.70-1.30); POTASSIUM 3.5 mmol/L (3.5-5.1); SODIUM 138 mmol/L (136-145)
[2021-03-07 06:51] LABS: BASOPHILS 1 % (0-1); MICROCYTOSIS SLIGHT; PLATELET SUFFICIENCY NORMAL (NORMAL); POLYCHROMASIA SLIGHT; TOTAL CELLS COUNTED 100 #CELLS
[2021-03-07] MEDS ORDERED: KLOR-CON M2020 ME1 PO (11:16)
[2021-03-07] MEDS ORDERED: LASIX40 MG PO (11:16)
[2021-03-07] MEDS ORDERED: NYSTOP60 GM T (11:16)
[2021-03-07] MEDS ORDERED: AQUAPHOR WITH N50 GM T (11:16)
[2021-03-07 12:00] VITALS: BP 126/52
[2021-03-07] MEDS ORDERED: ELIQUIS5 M1 PO (13:57)
[2021-03-08] MEDS ORDERED: Zaroxolyn,Diul2.5 MG PO (09:07)
== END 2021-03-07 15:26 | DRG 425 ==
LOC: ED 15:37 → EDHOLD 18:32 → 4E 18:32
PROVIDERS: Internal Medicine; Physician Assistant; Registered Nurse; ADMIT Student in an Organized Health Care Education/Training Program; ATTEND Student in an Organized Health Care Education/Training Program
DX: E87.6 Hypokalemia (principal); R60.0 Localized edema; R62.7 Adult failure to thrive; D50.9 Iron deficiency anemia, unspecified; E43 Unspecified severe protein-calorie malnutrition; I48.91 Unspecified atrial fibrillation; R65.10 Systemic inflammatory response syndrome (SIRS) of non-infectious origin without acute organ dysfunction; Z20.822 Contact with and (suspected) exposure to COVID-19; R73.9 Hyperglycemia, unspecified; E80.6 Other disorders of bilirubin metabolism; E66.01 Morbid (severe) obesity due to excess calories; I50.32 Chronic diastolic (congestive) heart failure; M10.9 Gout, unspecified; M25.539 Pain in unspecified wrist; G47.33 Obstructive sleep apnea (adult) (pediatric); I10 Essential (primary) hypertension; I48.11 Longstanding persistent atrial fibrillation; Z68.43 Body mass index [BMI] 50.0-59.9, adult; Z79.01 Long term (current) use of anticoagulants; Z82.49 Family history of ischemic heart disease and other diseases of the circulatory system; Z80.52 Family history of malignant neoplasm of bladder; Z93.3 Colostomy status; Z79.899 Other long term (current) drug therapy

== ENCOUNTER → 2021-03-15 | Outpatient (CLI) | payer OTHER ==
[2021-03-15] VITALS (10 sets, daily range): BP systolic 100–149; BP diastolic 55–75
[~2021-03-15] MED LIST changes: +AMITIZA8 MCG PO; +AQUAPHOR WITH N50 GM T; +CARDIZEM CD300 MG PO; +FINASTERIDE5 M1 PO; +FLOMAX0.4 MG PO; +KLOR-CON M2020 ME1 PO; +NYSTOP60 GM T; +PROPRANOLOL HCL10 MG PO; +Zaroxolyn,Diul2.5 MG PO
== END | disposition home or self-care (01) ==
LOC: TRNFUSION 08:00
PROVIDERS: ATTEND Internal Medicine
DX: D64.9 Anemia, unspecified (principal); I11.0 Hypertensive heart disease with heart failure; I50.9 Heart failure, unspecified

== ENCOUNTER → 2021-04-06 | Outpatient (CLI) | payer OTHER | LOC: WOUNDCARE 02:21 | PROVIDERS: ATTEND Nurse Practitioner | DX: L97.812 Non-pressure chronic ulcer of other part of right lower leg with fat layer exposed (principal); L97.822 Non-pressure chronic ulcer of other part of left lower leg with fat layer exposed; I89.0 Lymphedema, not elsewhere classified; L03.116 Cellulitis of left lower limb; I50.9 Heart failure, unspecified; E78.5 Hyperlipidemia, unspecified; G47.33 Obstructive sleep apnea (adult) (pediatric) ==

== ENCOUNTER → 2021-04-13 | Outpatient (CLI) | payer OTHER | LOC: WOUNDCARE 12:35 | PROVIDERS: ATTEND Nurse Practitioner | DX: L97.812 Non-pressure chronic ulcer of other part of right lower leg with fat layer exposed (principal); L97.822 Non-pressure chronic ulcer of other part of left lower leg with fat layer exposed; I89.0 Lymphedema, not elsewhere classified; L03.115 Cellulitis of right lower limb; I50.9 Heart failure, unspecified; E78.5 Hyperlipidemia, unspecified; G47.33 Obstructive sleep apnea (adult) (pediatric) ==

== ENCOUNTER → 2021-04-20 | Outpatient (CLI) | payer OTHER | LOC: WOUNDCARE 00:49 | PROVIDERS: ATTEND Nurse Practitioner | DX: L97.812 Non-pressure chronic ulcer of other part of right lower leg with fat layer exposed (principal); L97.822 Non-pressure chronic ulcer of other part of left lower leg with fat layer exposed; I89.0 Lymphedema, not elsewhere classified; L03.115 Cellulitis of right lower limb; I50.9 Heart failure, unspecified; E78.5 Hyperlipidemia, unspecified; G47.33 Obstructive sleep apnea (adult) (pediatric) ==

== ENCOUNTER → 2021-04-27 | Outpatient (CLI) | payer OTHER | LOC: WOUNDCARE 00:15 | PROVIDERS: ATTEND Nurse Practitioner | DX: L97.812 Non-pressure chronic ulcer of other part of right lower leg with fat layer exposed (principal); L97.822 Non-pressure chronic ulcer of other part of left lower leg with fat layer exposed; I89.0 Lymphedema, not elsewhere classified; L03.115 Cellulitis of right lower limb; I50.9 Heart failure, unspecified; E78.5 Hyperlipidemia, unspecified; G47.33 Obstructive sleep apnea (adult) (pediatric) ==

== ENCOUNTER → 2021-05-04 | Outpatient (CLI) | payer OTHER | LOC: WOUNDCARE 02:10 | PROVIDERS: ATTEND Nurse Practitioner | DX: L97.812 Non-pressure chronic ulcer of other part of right lower leg with fat layer exposed (principal); L97.822 Non-pressure chronic ulcer of other part of left lower leg with fat layer exposed; I89.0 Lymphedema, not elsewhere classified; L03.115 Cellulitis of right lower limb; I50.9 Heart failure, unspecified; E78.5 Hyperlipidemia, unspecified; G47.33 Obstructive sleep apnea (adult) (pediatric) ==

== ENCOUNTER → 2021-05-25 | Outpatient (CLI) | payer OTHER | LOC: WOUNDCARE 00:30 | PROVIDERS: ATTEND Nurse Practitioner Family | DX: L97.812 Non-pressure chronic ulcer of other part of right lower leg with fat layer exposed (principal); L97.822 Non-pressure chronic ulcer of other part of left lower leg with fat layer exposed; I89.0 Lymphedema, not elsewhere classified; L03.115 Cellulitis of right lower limb; I50.9 Heart failure, unspecified; E78.5 Hyperlipidemia, unspecified; G47.33 Obstructive sleep apnea (adult) (pediatric) ==

== ENCOUNTER → 2021-06-08 | Outpatient (CLI) | payer OTHER | LOC: WOUNDCARE 03:15 | PROVIDERS: ATTEND Nurse Practitioner Family | DX: L97.812 Non-pressure chronic ulcer of other part of right lower leg with fat layer exposed (principal); L97.822 Non-pressure chronic ulcer of other part of left lower leg with fat layer exposed; I89.0 Lymphedema, not elsewhere classified; L03.115 Cellulitis of right lower limb; I50.9 Heart failure, unspecified; E78.5 Hyperlipidemia, unspecified; G47.33 Obstructive sleep apnea (adult) (pediatric) ==

== ENCOUNTER → 2021-06-15 | Outpatient (CLI) | payer OTHER | LOC: WOUNDCARE 00:13 | PROVIDERS: ATTEND Nurse Practitioner Family | DX: L97.812 Non-pressure chronic ulcer of other part of right lower leg with fat layer exposed (principal); L97.822 Non-pressure chronic ulcer of other part of left lower leg with fat layer exposed; I89.0 Lymphedema, not elsewhere classified; L03.115 Cellulitis of right lower limb; I50.9 Heart failure, unspecified; G47.33 Obstructive sleep apnea (adult) (pediatric); E78.5 Hyperlipidemia, unspecified ==

== ENCOUNTER → 2021-06-29 | Outpatient (CLI) | payer OTHER | LOC: WOUNDCARE 00:56 | PROVIDERS: ATTEND Nurse Practitioner Family | DX: L97.812 Non-pressure chronic ulcer of other part of right lower leg with fat layer exposed (principal); L97.822 Non-pressure chronic ulcer of other part of left lower leg with fat layer exposed; I89.0 Lymphedema, not elsewhere classified; L03.115 Cellulitis of right lower limb; I50.9 Heart failure, unspecified; G47.33 Obstructive sleep apnea (adult) (pediatric); E78.5 Hyperlipidemia, unspecified ==

== ENCOUNTER → 2021-07-06 | Outpatient (CLI) | payer OTHER | LOC: WOUNDCARE 01:46 | PROVIDERS: ATTEND Nurse Practitioner Family | DX: L97.812 Non-pressure chronic ulcer of other part of right lower leg with fat layer exposed (principal); L97.822 Non-pressure chronic ulcer of other part of left lower leg with fat layer exposed; I89.0 Lymphedema, not elsewhere classified; L03.115 Cellulitis of right lower limb; I50.9 Heart failure, unspecified; G47.33 Obstructive sleep apnea (adult) (pediatric); E78.5 Hyperlipidemia, unspecified ==

== ENCOUNTER → 2021-07-13 | Outpatient (CLI) | payer OTHER | LOC: WOUNDCARE 04:49 | PROVIDERS: ATTEND Nurse Practitioner Family | DX: L97.812 Non-pressure chronic ulcer of other part of right lower leg with fat layer exposed (principal); L97.822 Non-pressure chronic ulcer of other part of left lower leg with fat layer exposed; L03.115 Cellulitis of right lower limb; I89.0 Lymphedema, not elsewhere classified; I50.9 Heart failure, unspecified; G47.33 Obstructive sleep apnea (adult) (pediatric); E78.5 Hyperlipidemia, unspecified ==